=== PATIENT | female | born 1960 | race Caucasian/White ===

== ENCOUNTER → 2025-01-20 11:30 | Outpatient (REF) | payer OTHER, SELFPAY | LOC: HWRCS 11:30 | PROVIDERS: ATTENDING PHYSICIAN Internal Medicine Cardiovascular Disease; FAMILY PHYSICIAN Nurse Practitioner | DX: R06.02 Shortness of breath (principal); I42.9 Cardiomyopathy, unspecified; R00.2 Palpitations; I34.0 Nonrheumatic mitral (valve) insufficiency | CPT/HCPCS: 78452; 93017; A9500; J2785 ==

== ENCOUNTER → 2025-01-22 15:04 | Outpatient (REF) | payer OTHER, SELFPAY | LOC: HWRCS 15:04 | PROVIDERS: ATTENDING PHYSICIAN Internal Medicine Cardiovascular Disease; FAMILY PHYSICIAN Nurse Practitioner | DX: R06.02 Shortness of breath (principal); I42.9 Cardiomyopathy, unspecified; R00.2 Palpitations; I34.0 Nonrheumatic mitral (valve) insufficiency | CPT/HCPCS: 93306 ==